=== PATIENT | female | born 1985 | race Two or more races ===

== ENCOUNTER 2019-10-16 13:23 | Inpatient (IN) | payer MEDICAID, OTHER ==
[~2019-10-16] VITALS: Ht 165.1 cm; Wt 75.3 kg
[~2019-10-16 13:23] MED LIST: PREN-88 PO
[2019-10-16] MEDS ORDERED: DEXT 5%/LACTATED RINGERS 1,000 ML IV SCH (13:57)
[2019-10-16] MEDS ORDERED: DEXT 5%/LR + PITOCIN 20UNITS/L 1,000 ML IV SCH ×2 (13:57→17:40)
[2019-10-16] MEDS ORDERED: LIDOCAINE HCL 1% 20ML VIAL (Pyxis) INJ INFIL SCH (14:00)
[2019-10-16 15:52] LABS: BASOPHILS % 0.5 % (0.0-2.0); EOSINOPHILS % 2.6 % (0.0-5.0); HEMATOCRIT. 39.3 % (36.0-48.0); HEMOGLOBIN. 13.5 g/dL (12.0-16.0); LYMPHOCYTES % 21.7 % (20.0-50.0); MEAN CORPUSCULAR HEMOGLOBIN 30.5 pg (28.0-32.0); MEAN CORPUSCULAR VOLUME 89.2 fL (81.0-99.0); MEAN PLATELET VOLUME 10.2 fl (7.4-10.4); MONOCYTES % 6.6 % (2.0-8.0); NEUTROPHILS % 68.6 % (40.0-76.0); PLATELET 191 x1000/uL (130-400); RED BLOOD CELL COUNT 4.41 mill/uL (4.2-5.4); RED CELL DISTRIBUTION WIDTH 14.5 % (11.6-14.6)
[2019-10-16] MEDS ORDERED: RHO(D) IMMUNE GLOBULIN 300 MCG/SYR IM NR (16:00)
[2019-10-16 16:03] LABS: INR 0.9; PARTIAL THROMBOPLASTIN TIME 26.5 sec (23.4-31.0); PROTHROMBIN TIME 9.5 sec (9.6-11.0)
[2019-10-16 16:30] LABS: CLARITY URINE CLEAR (CLEAR); COLOR URINE YELLOW (YELLOW); KETONES URINE NEGATIVE (NEGATIVE); LEUKOCYTE ESTERASE URINE NEGATIVE (NEGATIVE); NITRITE URINE NEGATIVE (NEGATIVE); OCCULT BLOOD URINE 1+ (NEGATIVE); PH URINE 6.5 (4.5-8.0); PROTEIN URINE NEGATIVE (NEGATIVE); SPECIFIC GRAVITY URINE 1.009 (1.005-1.030); UROBILINOGEN URINE 0.2 E.U./dL (0.2-1.0)
[2019-10-16 16:31] LABS: HEPATITIS B SURFACE ANTIGEN NEGATIVE
[2019-10-16 16:41] LABS: *AMPHETAMINES SCREEN URINE NEGATIVE (NEGATIVE); *BARBITURATES SCREEN URINE NEGATIVE (NEGATIVE)
[2019-10-16 16:42] LABS: *BENZODIAZEPINES SCREEN URINE NEGATIVE (NEGATIVE); *COCAINE SCREEN URINE NEGATIVE (NEGATIVE); CANNABINOID URINE SCREEN NEGATIVE (NEGATIVE); METHADONE URINE SCREEN NEGATIVE (NEGATIVE); OPIATES URINE SCREEN NEGATIVE (NEGATIVE); PHENCYCLIDINE URINE SCREEN NEGATIVE (NEGATIVE)
[2019-10-16] MEDS ORDERED: DIPHENHYDRAMINE 25MG CAPSULE PO PRN (17:45)
[2019-10-16] MEDS ORDERED: GLYCERIN/WITCH HAZEL LEAF MEDICATED PAD TOP PRN (17:45)
[2019-10-16] MEDS ORDERED: LANOLIN OINT 7GM TUBE TOP PRN (17:45)
[2019-10-16] MEDS ORDERED: ACETAMINOPHEN WITH CODEINE 300/30MG TABLET PO PRN (17:45)
[2019-10-16] MEDS ORDERED: IBUPROFEN 400MG TABLET PO PRN (17:45)
[2019-10-16] MEDS ORDERED: BISACODYL 10MG SUPP PR PRN (17:45)
[2019-10-16] MEDS ORDERED: HEMORRHOIDAL SUPP PR PRN (17:45)
[2019-10-16 19:30] VITALS: BP 133/73
[2019-10-16] MEDS: DOCUSATE SODIUM 100MG CAPSULE PO SCH (20:56)
[2019-10-16] MEDS: SIMETHICONE 80MG TABLET CHEW PO SCH (20:57)
[2019-10-16] MEDS: BENZOCAINE/LANOLIN/ALOE VERA SPRAY TOP PRN (20:57)
[2019-10-16] MEDS: MAGNESIUM/ALUMINUM HYDROXIDE/SIMETHICONE 30ML UDC PO SCH (20:57)
[2019-10-17] MEDS: IBUPROFEN 800MG TABLET PO PRN ×2 (02:11→12:27)
[2019-10-17 04:00] VITALS: BP 117/61
[2019-10-17 05:51] LABS: BASOPHILS % 0.5 % (0.0-2.0); EOSINOPHILS % 2.6 % (0.0-5.0); HEMOGLOBIN. 12.3 g/dL (12.0-16.0); LYMPHOCYTES % 24.7 % (20.0-50.0); MEAN CORPUSCULAR VOLUME 90.2 fL (81.0-99.0); MEAN PLATELET VOLUME 10.4 fl (7.4-10.4); MONOCYTES % 7.4 % (2.0-8.0); NEUTROPHILS % 64.8 % (40.0-76.0); PLATELET 181 x1000/uL (130-400); RED CELL DISTRIBUTION WIDTH 14.3 % (11.6-14.6)
[2019-10-17] MEDS ORDERED: FERROUS SULFATE 325MG TABLET PO SCH (07:30)
[2019-10-17 08:00] VITALS: BP 110/80
[2019-10-17] MEDS ORDERED: TETANUS, DIPHTHERIA, PERTUSSIS VAC/PF 0.5ML (>7YR OLD) IM ONE (10:00)
[2019-10-17] MEDS: BENZOCAINE/LANOLIN/ALOE VERA SPRAY TOP PRN (10:39)
[2019-10-17] MEDS: PRENATAL VIT/FE FUMARATE/FA TABLET PO SCH (12:27)
[2019-10-17] MEDS: SIMETHICONE 80MG TABLET CHEW PO SCH ×2 (12:28→21:35)
[2019-10-17 18:28] VITALS: BP 130/79
[2019-10-17 19:30] VITALS: BP 124/88
[2019-10-17] MEDS ORDERED: MEASLES,MUMPS&RUBELLA VACCINE 1 VIAL SUBCUT ONE (20:30)
[2019-10-17] MEDS: DOCUSATE SODIUM 100MG CAPSULE PO SCH (21:35)
[2019-10-17] MEDS: MAGNESIUM/ALUMINUM HYDROXIDE/SIMETHICONE 30ML UDC PO SCH (21:35)
[2019-10-18] MEDS: IBUPROFEN 800MG TABLET PO PRN ×2 (00:13→10:22)
[2019-10-18 04:00] VITALS: BP 121/75
[2019-10-18 08:30] VITALS: BP 115/73
[2019-10-18] MEDS ORDERED: LANOLIN OINT 7GM TUBE TOP PRN (10:15)
[2019-10-18] MEDS: PRENATAL VIT/FE FUMARATE/FA TABLET PO SCH (10:21)
== END 2019-10-18 13:25 | disposition home or self-care (01) | DRG 560 ==
LOC: OBSVTOIN 13:23 → 8 EST A/PP 13:23 → 8 EST LDRP 14:31 → 8EST 19:01
PROVIDERS: ADMIT Obstetrics & Gynecology; ATTEND Obstetrics & Gynecology
PROC: 10D07Z6 Extraction of Products of Conception, Vacuum, Via Natural or Artificial Opening (ICD-10-PCS; principal; 2019-10-16)
PROC: 0KQM0ZZ Repair Perineum Muscle, Open Approach (ICD-10-PCS; 2019-10-16)
DX: O42.913 Preterm premature rupture of membranes, unspecified as to length of time between rupture and onset of labor, third trimester (principal); D72.829 Elevated white blood cell count, unspecified; O99.13 Other diseases of the blood and blood-forming organs and certain disorders involving the immune mechanism complicating the puerperium; O70.1 Second degree perineal laceration during delivery; Z37.0 Single live birth; Z3A.39 39 weeks gestation of pregnancy
CPT/HCPCS: 36415; 80305; 81003; 85025; 86592; 86703; 86762; 86850; 86900; 87340; 90707; 90715; 99281; J2590; J7121